=== PATIENT | female | born 1955 | race American Indian/Alaskan Native ===

== ENCOUNTER 2017-06-10 10:06 | Emergency (ER) | payer BC, OTHER ==
[2017-06-10 11:47] VITALS: BP 176/104
[2017-06-10] MEDS ORDERED: ZOFRAN ODT PO ONE (13:14)
[2017-06-10] MEDS ORDERED: MORPHINE IM ONE (13:14)
[2017-06-10] MEDS ORDERED: NAPROSYN PO ONE (13:15)
--- NOTE | 2017-06-10 13:20 | Emergency Department Report ---
ED Headache HPI - General Chief Complaint: Headache Stated Complaint: NAUSEA/HEADACHE Time Seen by Provider: 06/10/17 13:11 Source: patient - History of Present Illness Initial Comments: Physical female presents for recurrent migraine headaches for the past 40+ years. Since age 17. She has typical throbbing frontal headache. Mild photophobia. She denies visual disturbance although documented blurry vision on triage note. She denies blurry vision at this time. She states that she normally comes to the ER for morphine or Demerol shot. Her primary physician has prescribed ibuprofen and Benadryl. No neck stiffness. Headache is typical for patient. Gradual onset of pain/headache on Friday. Timing/Duration: other (3 days since Friday) Quality: moderate Head Injury Location: frontal, temporal Recent Head Trauma: frequent headaches, other (history of migraine headaches since the age of 17, springtime with increased pollen counts typical triggers) Modifying Factors: worse with: cold therapy, exposure to light, immobilization, medication, movement, rest Associated Symptoms: nausea/vomiting. denies: confusion, fatigue, facial pain, fever/chills, flushing, loss of consciousness, nasal congestion, nasal drainage , numbness in legs/feet, seizures, sinus infection, stiff neck, vision changes, weakness Allergies/Adverse Reactions: Allergies No Known Allergies Allergy (Verified 11/27/13 14:08) Home Medications: Ambulatory Orders Insulin Glargine,Hum.rec.anlog [Lantus Solostar] 75 units SUB-Q QAM 12/29/12 Insulin Lispro [HumaLOG VIAL] 44 units SUB-Q TID 12/29/12 Losartan/Hydrochlorothiazide [Hyzaar 100-25] 1 each PO QDAY 12/29/12 Albuterol Sulfate [Ventolin HFA] 2 puff IH PRN PRN 01/18/14 Diclofenac Sodium [Diclofenac Sodium ER] 100 mg PO DAILY 01/18/14 Insulin Glargine,Hum.rec.anlog [Lantus Solostar] 25 units SQ HS 01/18/14 Saxagliptin HCl/Metformin HCl [Kombiglyze XR 5-1,000 mg] 1 tab PO QPM 01/18/14 Travoprost [Travatan Z] 1 drop OP HS 01/18/14 Doxycycline [Vibramycin CAP] 100 mg PO BID #14 capsule 01/23/14 predniSONE [Deltasone] 20 mg PO QDAY #5 tablet 01/23/14 HYDROcodone/ACETAMINOPHEN [[place] 7.5-325 mg TAB] 1 each PO Q6H PRN #20 tablet ED Review of Systems ROS: Stated complaint: NAUSEA/HEADACHE Other details as noted in HPI Comment: All other systems reviewed and negative Constitutional: denies: chills, fever, malaise ENT: denies: throat pain Respiratory: denies: cough Cardiovascular: denies: chest pain ED Past Medical Hx - Past Medical History Hx Hypertension: Yes Hx Diabetes: Yes Hx Headaches / Migraines: Yes Additional medical history: Sleep apnea - Surgical History Additional Surgical History: tubal ligation. x 2. abscess on neck. cataract surgery both eyes, cyst removed from left eye last week - Social History Smoking Status: Never Smoker - Medications Home Medications: Home Medications Medication Instructions Recorded Confirmed Last Taken Type Insulin Glargine,Hum.rec.anlog 75 units SUB-Q QAM 12/29/12 01/18/14 01/18/14 History [Lantus Solostar] Insulin Lispro [HumaLOG VIAL] 44 units SUB-Q TID 12/29/12 01/18/14 01/18/14 History Losartan/Hydrochlorothiazide 1 each PO QDAY 12/29/12 01/18/14 01/18/14 History [Hyzaar 100-25] Albuterol Sulfate [Ventolin HFA] 2 puff IH PRN PRN 01/18/14 01/18/14 01/18/14 History Diclofenac Sodium [Diclofenac 100 mg PO DAILY 01/18/14 01/18/14 01/18/14 History Sodium ER] Insulin Glargine,Hum.rec.anlog 25 units SQ HS 01/18/14 01/18/14 01/17/14 History [Lantus Solostar] Saxagliptin HCl/Metformin HCl 1 tab PO QPM 01/18/14 01/18/14 01/17/14 History [Kombiglyze XR 5-1,000 mg] Travoprost [Travatan Z] 1 drop OP HS 01/18/14 01/18/14 01/17/14 History Doxycycline [Vibramycin CAP] 100 mg PO BID #14 capsule 01/23/14 Unknown Rx predniSONE [Deltasone] 20 mg PO QDAY #5 tablet 01/23/14 Unknown Rx HYDROcodone/ACETAMINOPHEN [[place] 1 each PO Q6H PRN #20 tablet 09/18/14 Unknown Rx 7.5-325 mg TAB] ED Physical Exam - General Limitations: No Limitations General appearance: alert, in no apparent distress - Head Head exam: Present: atraumatic, normocephalic - Eye Eye exam: Present: normal appearance - ENT ENT exam: Present: mucous membranes moist - Neck Neck exam: Present: normal inspection - Respiratory Respiratory exam: Present: normal lung sounds bilaterally. Absent: respiratory distress, wheezes, rales, rhonchi - Cardiovascular Cardiovascular Exam: Present: regular rate, normal rhythm. Absent: systolic murmur, diastolic murmur, rubs, gallop - GI/Abdominal GI/Abdominal exam: Present: soft, normal bowel sounds. Absent: distended, guarding, rebound - Extremities Exam Extremities exam: Present: normal inspection - Back Exam Back exam: Present: normal inspection - Neurological Exam Neurological exam: Present: alert, oriented X3, CN II-XII intact, normal gait. Absent: motor sensory deficit - Psychiatric Psychiatric exam: Present: normal affect, normal mood - Skin Skin exam: Present: warm, dry, intact, normal color. Absent: rash ED Course Vital Signs 06/10/17 11:42 Temperature 98.2 F Pulse Rate 71 Respiratory 18 Rate Blood Pressure 176/104 O2 Sat by Pulse 100 Oximetry ED Medical Decision Making - Medical Decision Making Mrs. Becerra presents with recurrent migraine headache. Headache today is typical for patient. She received IM morphine PO Zofran/Naproxen Dc'd home Critical care attestation.: If time is entered above; I have spent that time in minutes in the direct care of this critically ill patient, excluding procedure time. ED Disposition Clinical Impression: Migraine headache Disposition: DC-01 TO HOME OR SELFCARE Is pt being admited?: No Does the pt Need Aspirin: No Condition: Stable Instructions: Migraine Headache (ED) Referrals: PRIMARY CARE, [Primary Care Provider] - 3-5 Days Time of Disposition: 13:22
== END 2017-06-10 13:47 | disposition home or self-care (01) ==
LOC: ED 10:06
DX: G43.909 Migraine, unspecified, not intractable, without status migrainosus (principal); I10 Essential (primary) hypertension; E11.9 Type 2 diabetes mellitus without complications; Z98.51 Tubal ligation status
CPT/HCPCS: 96372; 99282; J2270; Q0162

== ENCOUNTER 2018-09-21 20:02 | Emergency (ER) | payer OTHER ==
[2018-09-21] MEDS ORDERED: ZOFRAN ODT PO ONE (20:52)
--- NOTE | 2018-09-21 20:52 | Event Note ---
ED Screening Note ED Screening Note: pt presents for N/V started today denies diarrhea c/o CHAMBERS for 4 days has a hx of migraines, has taken ibuprofen, sumitriptan, aleve states she feels light-headiness states she has had intermittent blurred vision PMHx DM, HTN states she took losartan today This initial assessment/diagnostic orders/clinical plan/treatment(s) is/are subject to change based on patients health status, clinical progression and re- assessment by fellow clinical providers in the ED. Further treatment and workup at subsequent clinical providers discretion. Patient/guardian urged not to elope from the ED as their condition may be serious if not clinically assessed and managed. Initial orders include: labs, UA, Ct head, zofran 4 mg ODT
[2018-09-21] MEDS ORDERED: ZOFRAN ODT ONE (20:55)
[2018-09-21 21:24] LABS: Bilirubin,Urine NEG (Negative); Blood,Urine NEG (Negative); Color,Urine Straw (Yellow); Protein,Urine <15 mg/dL mg/dL (Negative); Urobilinogen,Urine < 2.0 mg/dL (<2.0)
--- NOTE | 2018-09-21 21:51 | Cat Scan Report ---
CT BRAIN: 09/21/2018 INDICATION / CLINICAL INFORMATION: CHAMBERS, light-headedness. COMPARISON: None available. FINDINGS: BRAIN/INTRACRANIAL STRUCTURES: Unenhanced CT images of the brain demonstrate no evidence of intracran ial abnormality. Ventricles and sulci are normal in size and shape. There is no evidence of ischemic injury, hemorrhage, or mass. There are no abnormal extra-axial fluid collections. EXTRACRANIAL STRUCTURES: Unremarkable. IMPRESSION: Negative unenhanced CT of the brain. All CT scans at this location are performed using dose reduction to ALARA by means of automated expos ure control. Signer Name: Hang Mckenzie MD Signed: 09/21/2018 9:46 PM Workstation Name: [id number]
[2018-09-21 22:03] LABS: Basophils # (Auto) 0.1 K/mm3 (0.0-0.1); Basophils % (Auto) 0.5 % (0.0-1.8); Eosinophils # (Auto) 0.1 K/mm3 (0.0-0.4); Eosinophils % (Auto) 1.3 % (0.0-4.3); Hematocrit 34.3 % (30.3-42.9); Hemoglobin 11.5 gm/dl (10.1-14.3); Lymphocytes # (Auto) 2.6 K/mm3 (1.2-5.4); Lymphocytes % (Auto) 27.5 % (13.4-35.0); Mean Corpuscular HGB Conc 34 % (30-34); Mean Corpuscular Volume 83 fl (79-97); Monocytes # (Auto) 0.4 K/mm3 (0.0-0.8); Monocytes % (Auto) 4.4 % (0.0-7.3); Platelet Count 242 K/mm3 (140-440); Red Blood Count 4.14 M/mm3 (3.65-5.03)
[2018-09-21 22:22] LABS: Alanine Aminotransferase 12 units/L (7-56); Albumin 4.2 g/dL (3.9-5); BUN/Creatinine Ratio 17; Blood Urea Nitrogen 19 mg/dL (7-17); Calcium 9.4 mg/dL (8.4-10.2); Hemolysis Index 3
[2018-09-21] MEDS ORDERED: MORPHINE IV ONE (22:25)
[2018-09-21] MEDS ORDERED: ZOFRAN IV ONE (22:25)
[2018-09-21] MEDS ORDERED: NORMODYNE IV ONE (22:25)
[2018-09-21] MEDS ORDERED: TORADOL IV ONE (22:25)
[2018-09-22] MEDS ORDERED: MORPHINE IV ONE (00:20)
[2018-09-22] MEDS ORDERED: TYLENOL PO ONE (00:20)
[2018-09-22] MEDS ORDERED: ULTRAM PO ONE (00:20)
--- NOTE | 2018-09-22 00:26 | Emergency Department Report ---
ED Headache HPI - General Chief Complaint: Nausea/Vomiting/Diarrhea Stated Complaint: VOMITING/HEAD AND NECK PAIN Time Seen by Provider: 09/21/18 20:49 - History of Present Illness Initial Comments: Mrs. Squires is a 63-year-old female with history of migraine headache, severe hypertension, diabetes mellitus who presents with headache for the past 4 days. Gradual onset of headache on . Pain is throbbing. She has nausea vomiting. She was evaluated by her PCP recently for the same headache. Headache has been persistent. Left facial pain. She is unable to recall the name of her home medication for migraine. Headache is typical for her previous headaches. She's had migraine headaches since adolescence. Pain radiates to her left jaw. Predominantly located in her left forehead and left cheek. Timing/Duration: other (4 days since ) Quality: severe, constant, pressure, sharp, stabbing Head Injury Location: frontal Recent Head Trauma: frequent headaches Associated Symptoms: nausea/vomiting Allergies/Adverse Reactions: Allergies No Known Allergies Allergy (Verified 11/27/13 14:08) Home Medications: Ambulatory Orders Insulin Glargine,Hum.rec.anlog [Lantus Solostar] 75 units SUB-Q QAM 12/29/12 Insulin Lispro [HumaLOG VIAL] 44 units SUB-Q TID 12/29/12 Losartan/Hydrochlorothiazide [Hyzaar 100-25] 1 each PO QDAY 12/29/12 Albuterol Sulfate [Ventolin HFA] 2 puff IH PRN PRN 01/18/14 Diclofenac Sodium [Diclofenac Sodium ER] 100 mg PO DAILY 01/18/14 Insulin Glargine,Hum.rec.anlog [Lantus Solostar] 25 units SQ HS 01/18/14 Saxagliptin HCl/Metformin HCl [Kombiglyze XR 5-1,000 mg] 1 tab PO QPM 01/18/14 Travoprost [Travatan Z] 1 drop OP HS 01/18/14 DOXYCYCLINE Hyclate [Vibramycin CAP] 100 mg PO BID #14 capsule 01/23/14 predniSONE [Deltasone] 20 mg PO QDAY #5 tablet 01/23/14 HYDROcodone/ACETAMINOPHEN [[place] 7.5-325 mg TAB] 1 each PO Q6H PRN #20 tablet 09/18/14 HYDROcodone/APAP 5-325 [[place] 5/325] 1 each PO Q6HR PRN #10 tablet 09/22/18 Promethazine [Phenergan] 25 mg PO Q6HR PRN #10 tab 09/22/18 ED Review of Systems ROS: Stated complaint: VOMITING/HEAD AND NECK PAIN Other details as noted in HPI Comment: All other systems reviewed and negative Constitutional: denies: fever, malaise Neurological: headache ED Past Medical Hx - Past Medical History Previous Medical History?: Yes Hx Hypertension: Yes Hx Diabetes: Yes Hx Headaches / Migraines: Yes Additional medical history: Sleep apnea - Surgical History Additional Surgical History: tubal ligation. x 2. abscess on neck. cataract surgery both eyes, cyst removed from left eye last week - Social History Smoking Status: Never Smoker Substance Use Type: None - Medications Home Medications: Home Medications Medication Instructions Recorded Confirmed Last Taken Type Insulin Glargine,Hum.rec.anlog 75 units SUB-Q QAM 12/29/12 01/18/14 01/18/14 History [Lantus Solostar] Insulin Lispro [HumaLOG VIAL] 44 units SUB-Q TID 12/29/12 01/18/14 01/18/14 History Losartan/Hydrochlorothiazide 1 each PO QDAY 12/29/12 01/18/14 01/18/14 History [Hyzaar 100-25] Albuterol Sulfate [Ventolin HFA] 2 puff IH PRN PRN 01/18/14 01/18/14 01/18/14 History Diclofenac Sodium [Diclofenac 100 mg PO DAILY 01/18/14 01/18/14 01/18/14 History Sodium ER] Insulin Glargine,Hum.rec.anlog 25 units SQ HS 01/18/14 01/18/14 01/17/14 History [Lantus Solostar] Saxagliptin HCl/Metformin HCl 1 tab PO QPM 01/18/14 01/18/14 01/17/14 History [Kombiglyze XR 5-1,000 mg] Travoprost [Travatan Z] 1 drop OP HS 01/18/14 01/18/14 01/17/14 History DOXYCYCLINE Hyclate [Vibramycin 100 mg PO BID #14 capsule 01/23/14 Unknown Rx CAP] predniSONE [Deltasone] 20 mg PO QDAY #5 tablet 01/23/14 Unknown Rx HYDROcodone/ACETAMINOPHEN [[place] 1 each PO Q6H PRN #20 tablet 09/18/14 Unknown Rx 7.5-325 mg TAB] HYDROcodone/APAP 5-325 [[place] 1 each PO Q6HR PRN #10 tablet 09/22/18 Unknown Rx 5/325] Promethazine [Phenergan] 25 mg PO Q6HR PRN #10 tab 09/22/18 Unknown Rx ED Physical Exam - General Limitations: No Limitations General appearance: alert, in no apparent distress - Head Head exam: Present: atraumatic, normocephalic - Eye Eye exam: Present: normal appearance - ENT ENT exam: Present: mucous membranes moist - Neck Neck exam: Present: normal inspection, full ROM - Respiratory Respiratory exam: Present: normal lung sounds bilaterally. Absent: respiratory distress, wheezes, rales, rhonchi - Cardiovascular Cardiovascular Exam: Present: regular rate, normal rhythm, normal heart sounds. Absent: systolic murmur, diastolic murmur, rubs, gallop - GI/Abdominal GI/Abdominal exam: Present: soft, normal bowel sounds. Absent: distended, tenderness, guarding, rebound - Extremities Exam Extremities exam: Present: normal inspection - Back Exam Back exam: Present: normal inspection - Neurological Exam Neurological exam: Present: alert, oriented X3 - Psychiatric Psychiatric exam: Present: normal affect, normal mood - Skin Skin exam: Present: warm, dry, intact, normal color. Absent: rash ED Course Vital Signs 09/21/18 09/21/18 09/21/18 20:49 22:53 23:00 Temperature 98.6 F Pulse Rate 81 71 Respiratory 18 13 Rate Blood Pressure 195/100 191/111 O2 Sat by Pulse 100 60 L 100 Oximetry 09/21/18 09/21/18 23:16 23:46 Temperature Pulse Rate 65 66 Respiratory 11 L 12 Rate Blood Pressure 170/90 152/84 O2 Sat by Pulse 98 97 Oximetry ED Medical Decision Making - Lab Data Result diagrams: 09/21/18 21:32 09/21/18 21:32 Laboratory Results - last 24 hr 09/21/18 09/21/18 09/21/18 21:00 21:32 21:32 WBC 9.6 RBC 4.14 Hgb 11.5 Hct 34.3 MCV 83 MCH 28 MCHC 34 RDW 14.0 Plt Count 242 Lymph % (Auto) 27.5 Door % (Auto) 4.4 Eos % (Auto) 1.3 Baso % (Auto) 0.5 Lymph # 2.6 Door # 0.4 Eos # 0.1 Baso # 0.1 Seg Neutrophils % 66.3 Seg Neutrophils # 6.4 Sodium 139 Potassium 3.4 L Chloride 99.7 Carbon Dioxide 29 Anion Gap 14 BUN 19 H Creatinine 1.1 Estimated GFR > 60 BUN/Creatinine Ratio 17 Glucose 184 H Calcium 9.4 Total Bilirubin 0.30 AST 13 ALT 12 Alkaline Phosphatase 78 Total Protein 7.6 Albumin 4.2 Albumin/Globulin Ratio 1.2 Urine Color Straw Urine Turbidity Clear Urine pH 5.0 Ur Specific [place] 1.010 Urine Protein <15 mg/dl Urine Glucose (UA) Neg Urine Ketones Neg Urine Blood Neg Urine Nitrite Neg Urine Bilirubin Neg Urine Urobilinogen < 2.0 Ur Leukocyte Esterase Neg Urine WBC (Auto) 1.0 Urine RBC (Auto) 3.0 U Epithel Cells (Auto) < 1.0 - Radiology Data Radiology results: report reviewed CT head without acute process according to radiology report - Medical Decision Making Migraine headache possible component of tension headache with neck pain. Possible cervical DJD. I do not suspect intracranial hemorrhage. I do not suspect meningitis or dangerous form of headache. Hypertensive urgency addressed with IV labetalol. Symptoms improved with the treatment provided in the ED. I have prescribed promethazine and norco for headache. Also referred patient to neurologist. Critical care attestation.: If time is entered above; I have spent that time in minutes in the direct care of this critically ill patient, excluding procedure time. ED Disposition Clinical Impression: Hypertensive urgency, Migraine headache Disposition: DC-01 TO HOME OR SELFCARE Is pt being admited?: No Does the pt Need Aspirin: No Condition: Stable Instructions: Migraine Headache (ED), Hypertension (ED) Prescriptions: HYDROcodone/APAP 5-325 [[place] 5/325] 1 each PO Q6HR PRN #10 tablet PRN Reason: Pain Promethazine [Phenergan] 25 mg PO Q6HR PRN #10 tab PRN Reason: Nausea Referrals: CARON BRAGA MD [Primary Care Provider] - 3-5 Days RIDGE PLAZA MD [Staff Physician] - 3-5 Days
[2018-09-22 02:07] VITALS: BP 149/76
== END 2018-09-22 02:07 | disposition home or self-care (01) ==
LOC: ED 20:02
DX: G43.909 Migraine, unspecified, not intractable, without status migrainosus (principal); I16.0 Hypertensive urgency; I10 Essential (primary) hypertension; E11.9 Type 2 diabetes mellitus without complications; G47.30 Sleep apnea, unspecified; Z98.51 Tubal ligation status; Z98.890 Other specified postprocedural states; Z79.4 Long term (current) use of insulin; Z79.899 Other long term (current) drug therapy
CPT/HCPCS: 36415; 70450; 80053; 81001; 85025; 96374; 96375; 96376; 99284; J1885; J2270; J2405; Q0162